=== PATIENT | male | born 2000 | race Caucasian/White ===

== ENCOUNTER 2019-01-07 23:01 | Emergency (ER) | payer MEDICAID, SELFPAY ==
[2019-01-07 23:02] VITALS: BP 109/69; PULSE 90; RESP 15; TEMP 36.8; O2SAT 96; BMI 22.6
--- NOTE | 2019-01-07 23:15 | ED.DCSUM_ITS ---
- ER Visit Summary Date of Service: 01/07/19 Chief Complaint: Watery eyes, scratchy throat and nasal drainage History of Present Illness: The patient is a 18 M no significant past medical or surgical history. Patient states he was cutting grass yesterday and today and has had watery eyes, scratchy throat and clear runny nose. Denies any fever. No shortness of breath. No significant cough no wheezing. Physical Examination: Well-appearing young male. No acute distress. Vital si gns are stable and afebrile. Pulse ox 96% on room air no hypoxia. No distress. HEENT exam both eyes are slightly injected and watering consistent with allergic reaction. There is no foreign body. No discharge. TMs normal. Posterior pharynx normal. Clear rhinorrhea. Neck nontender no lymphadenopathy. Lungs clear to auscultation bilaterally. Heart regular rhythm no murmur. Abdomen soft nontender. Extremities moves all 4. Test Results: None Emergency Department Course and Treatment: Exam and history are consistent with allergic reaction. Seasonal allergies. Prednisone here. Prescription for prednisone and Zyrtec as needed. Treatment Plan: Prednisone 40 mill grams a day for 6 more days. Zyrtec as needed. Disposition: Discharge Impression: Acute seasonal allergies This note was generated with [employer] dictation software. It may contain incorrect words, spelling, and punctuation that were not noted in review of the chart prior to signing
--- NOTE | 2019-01-07 23:16 | ED.DEP ---
ED Disposition - Plan for ED Patient: Disposition: Home or Assisted Living Instructions: ED Allergy Seasonal Prescriptions: Cetirizine HCl/Pseudoephedrine [Zyrtec-D Tablet] 1 ea PO BID PRN PRN 10 Days #20 tab.er.12h PRN Reason: Allergies Prednisone [Deltasone] 40 mg PO DAILY 6 Days tab Referrals: Matt Lindsey MD [STAFF PHYSICIAN] - As Needed
[2019-01-07] MEDS: predniSONE 20 MG Tablet 60 MG PO (23:35)
== END 2019-01-07 23:36 | disposition home or self-care (01) ==
LOC: ED 23:29
PROVIDERS: Emergency Provider Emergency Medicine
DX: J30.2 Other seasonal allergic rhinitis (principal); Z72.0 Tobacco use
CPT/HCPCS: 99283

== ENCOUNTER 2021-01-12 21:10 | Emergency (ER) | payer MEDICAID, SELFPAY ==
[2021-01-12 21:10] VITALS: BP 108/58; PULSE 79; RESP 16; TEMP 36.7; O2SAT 96; BMI 23.5
--- NOTE | 2021-01-12 21:48 | EKG12_ITS ---
Test Reason : SOB Blood Pressure : / mmHG Vent. Rate : 067 BPM Atrial Rate : 067 BPM P-R Int : 140 ms QRS Dur : 082 ms QT Int : 378 ms P-R-T Axes : 070 060 055 degrees QTc Int : 399 ms Normal sinus rhythm with sinus arrhythmia Normal ECG Confirmed by LEONIDAS MADISON, KEIRY ([id number]), news editor MAYRA CHAUDHARY ([id number]) on 01/15/2021 12:48:51 PM Referred By: DAYNE MORRISON Confirmed By:KEIRY LAUREN MD
[2021-01-12] MEDS: predniSONE 20 MG Tablet 60 MG PO (21:56)
[2021-01-12 21:57] VITALS: O2SAT 98
--- NOTE | 2021-01-12 21:58 | ED.VIS.DYS ---
HPI History of Present Illness Chief Complaint: Cough Narrative Narrative: 20-year-old male with history of asthma presents with wheezing and a cough. He states this started today. He admits to being a smoker that he smells of marijuana. Patient denies any chest pain. He states he has not had an asthma attack in a long time. He states this is likely due to seasonal allergies in addition to smoking. He denies fever, chills, change in taste or smell, myalgias. [facility] History History of asthma Home Medications albuterol sulfate 1 inh INHALATION Q6H PRN #8.5 g 01/12/21 [Rx Last Taken Unknown] fexofenadine [Nhung Allergy] 180 mg PO DAILY 01/12/21 [History Last Taken Unknown] levocetirizine [Xyzal] 5 mg PO DAILY 01/12/21 [History Last Taken Unknown] prednisone 50 mg PO DAILY #4 tab 01/12/21 [Rx Last Taken Unknown] Allergy/AdvReac Type Severity Reaction Status Date / Time No Known Allergies Allergy Verified 01/12/21 21:12 Social History Smoking Status: Current every day smoker tobacco type: cigarettes ROS ROS ED Constitutional Constitutional ED: Denies chills, fever(s) or sweats Eyes Eyes: Denies blurry vision or change in vision ENT ENT ED: Denies ear pain, rhinorrhea or sore throat Cardiovascular Cardiovascular: Denies chest pain, palpitations or racing heartbeat Respiratory/Chest Respiratory/Chest: Reports cough and dyspnea; Denies sputum Gastrointestinal Gastrointestinal: Denies abdominal pain, constipation, diarrhea or vomiting Genitourinary Genitourinary ED: Denies dysuria, hematuria or urinary frequency Musculoskeletal Musculoskeletal: Denies arthralgias, myalgias or neck pain Integumentary Denies abscess, Abrasions or rash Neurologic Neurologic: Denies headache(s), paresthesias or weakness Psychiatric Psychiatric: Denies anxiety, depression, suicidal ideation or suicidal thoughts Endocrine Endocrinology: Denies polydipsia or polyuria EXAM Physical Exam Const Vital Signs: 01/12/21 21:10 01/12/21 21:57 01/12/21 22:09 Temperature 98.0 F Temperature Source Temporal Pulse Rate 79 92 Respiratory Rate 16 14 Respiratory Effort Non-Labored Respiratory Pattern Normal Normal Blood Pressure 108/58 L Blood Pressure Mean 74 Pulse Ox 96 Oxygen Delivery Method Room Air Room Air Positive well nourished General Appearance ED: NAD; Negative for pallor HEENT Reports normocephalic, head/scalp atraumatic and moist mucous membranes atraumatic Eyes PERRL and EOMs intact bilaterally Neck no lymphadenopathy and supple Chest Wall inspection of chest normal and palpation of chest normal Resp normal respiratory effort and clear to auscultation bilaterally Resp Narrative: No accessory muscle use. Patient speaking in full sentences. Auscultation: Negative for rales, rhonchi or wheezes Cardio regular rate and regular rhythm GI normal to inspection, nondistended, normoactive bowel sounds Narrative: Deferred Back/Spine Cervical Spine: Negative for cervical spine tenderness Neuro oriented x3 and CN's II-XII intact bilaterally Sensorium / Orientation: alert Psych mental status grossly normal Attitude: No agitated Skin no rashes or lesions noted and no wounds General Skin Exam: Negative for jaundice or pallor MDM MDM MDM Narrative Medical decision making narrative: Clinically I do think the patient is having an asthma attack. I do not suspect Covid and the patient himself says he feels well except for the wheezing. He is given breathing treatments and prednisone. I will reevaluate him after treatment. I suspect he will likely go home since his vital signs are stable prior to treatment. Patient is counseled to discontinue smoking. He is PERC negative and chest pain-free. Critical EKG was performed which showed a sinus rhythm at 67 bpm without signs of ischemic change. This is interpreted by myself. I do not believe the patient needs a chest x-ray. On reevaluation his wheezing is improved and he feels ready to go home. He was started on a prednisone burst and given an albuterol inhaler. Impression: 1. Asthma exacerbation Discharge Plan Triage Chief Complaint: Cough ED Provider: Shane Kovacs Dx/Rx/DC Orders Instructions: ED Asthma, Acute (Adult) Prescriptions: New albuterol sulfate 90 mcg/actuation HFA aerosol inhaler 1 inh inhalation Q6H PRN (Reason: shortness of breath or wheezing) Qty: 8.5 RF: 0 prednisone 50 mg tablet 50 mg PO DAILY Qty: 4 RF: 0 No Action fexofenadine [Nhung Allergy] 180 mg Tablet 180 mg PO DAILY RF: 0 levocetirizine [Xyzal] 5 mg Tablet 5 mg PO DAILY RF: 0 Primary Care Provider: Care Physician,No Primary Referrals: Zohra Hall MD [STAFF PHYSICIAN] - As Needed Care Physician,No Primary [Primary Care Provider] -
[2021-01-12] MEDS: Ipratropium/Albuterol Sulfate 3 ML AMPUL.NEB INHALATION (22:08)
[2021-01-12] MEDS: Albuterol 2.5 MG/3 ML VIAL.NEB. INHALATION (22:08)
[2021-01-12 22:09] VITALS: PULSE 92; RESP 14
[2021-01-12 22:59] VITALS: PULSE 86; RESP 18; O2SAT 96
== END 2021-01-12 23:00 | disposition home or self-care (01) ==
LOC: ED 22:20
PROVIDERS: Emergency Provider Student in an Organized Health Care Education/Training Program
DX: J45.901 Unspecified asthma with (acute) exacerbation (principal); F17.210 Nicotine dependence, cigarettes, uncomplicated
CPT/HCPCS: 93005; 94640; 99284